=== PATIENT | female | born 1995 | race Asian ===

== ENCOUNTER 2019-01-14 16:06 | Emergency (ER) | payer BC ==
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
--- NOTE | 2019-01-15 08:33 | Diagnostic Imaging Report ---
Left forearm (2 views) HISTORY: Pain, trauma Mildly displaced fracture the radial head noted. No focal amenities seen within the shafts of the radius or ulna. IMPRESSION: 1. Mildly displaced fracture radial head
--- NOTE | 2019-01-15 08:33 | Diagnostic Imaging Report ---
Left elbow (4 views) HISTORY: Pain Findings suggesting minimally displaced fracture of the radial head noted. Lateral view is suboptimal. However, there appears to be elevation of the anterior fat pad of the distal humerus and presence of a posterior fat pad consistent with a joint effusion. IMPRESSION: 1. Right consistent with a mildly displaced fracture of the radial head. Associated evidence of joint effusion.
== END 2019-01-14 18:00 | disposition home or self-care (01) ==
LOC: ER 16:06
DX: S53.402A Unspecified sprain of left elbow, initial encounter (principal); V19.3XXA Pedal cyclist (driver) (passenger) injured in unspecified nontraffic accident, initial encounter; Y93.89 Activity, other specified; Y92.410 Unspecified street and highway as the place of occurrence of the external cause; Y99.8 Other external cause status
CPT/HCPCS: 73080-TC-LT; 73090-TC-LT; Z7502